=== PATIENT | male | born 1970 | race Caucasian/White ===

== ENCOUNTER 2021-02-21 07:20 | Emergency (ER) | payer MEDICAID ==
[~2021-02-21] VITALS: Ht 182.9 cm; Wt 72.5 kg
[2021-02-21 09:33] VITALS: BP 147/98
[2021-02-21] MEDS ORDERED: tetanus & diphtheria toxoid (Td) vaccine 0.5ml IMVAC ONE (09:50)
[2021-02-21] MEDS ORDERED: amox tr/potassium clavulanate 875/125mg TAB PO ONE (09:50)
[2021-02-21] MEDS ORDERED: AMOX-115 PO (09:52)
[2021-02-21] MEDS ORDERED: NAPR-56 PO (09:52)
[2021-02-21] MEDS ORDERED: TETanus/Pertussis (Acell)/Diphther VAC/PF (Tdap-Adult) 0.5ml syringe IMVAC ONE (10:55)
== END 2021-02-21 11:06 | disposition home or self-care (01) ==
LOC: ER 07:20
DX: S61.232A Puncture wound without foreign body of right middle finger without damage to nail, initial encounter (principal); S60.311A Abrasion of right thumb, initial encounter; W54.0XXA Bitten by dog, initial encounter; Y93.89 Activity, other specified; Y92.89 Other specified places as the place of occurrence of the external cause; Y99.8 Other external cause status
CPT/HCPCS: 90471; 90715; 99283

== ENCOUNTER 2023-08-12 19:17 | Emergency (ER) | payer MEDICAID ==
[~2023-08-12] VITALS: Ht 182.9 cm; Wt 81.8 kg
[~2023-08-12 19:17] MED LIST: NAPR-56 PO
[2023-08-12] MEDS ORDERED: NAPR-56 PO (21:00)
[2023-08-12] MEDS ORDERED: ketorolac trometh inj. 60 MG/2 ML VIAL IM ONE (21:00)
[2023-08-12 21:33] VITALS: BP 136/78; PULSE 82; RESP 18; TEMP 98.1; O2SAT 99
== END 2023-08-12 21:36 | disposition home or self-care (01) ==
LOC: ER 19:18
DX: S42.392A Other fracture of shaft of left humerus, initial encounter for closed fracture (principal); W18.39XA Other fall on same level, initial encounter; Y93.89 Activity, other specified; Y92.89 Other specified places as the place of occurrence of the external cause; Y99.8 Other external cause status
CPT/HCPCS: 29105; 73030; 96372; 99284; J1885; A4565; A6449

== ENCOUNTER 2023-08-27 06:43 | Emergency (ER) | payer MEDICAID ==
[~2023-08-27] VITALS: Ht 182.9 cm; Wt 83.0 kg
[2023-08-27 06:44] VITALS: BP 140/86; PULSE 133; TEMP 98.5; O2SAT 99
[2023-08-27] MEDS ORDERED: TRAM50TA2 PO ×3 (07:22→07:26)
[2023-08-27] MEDS ORDERED: oxyCODONE/APAP 5-325mg tablet PO ONE (07:30)
[2023-08-27] MEDS ORDERED: ibuprofen tablet 400 MG TABLET PO ONE (07:30)
[2023-08-27 07:49] VITALS: RESP 18
== END 2023-08-27 08:07 | disposition home or self-care (01) ==
LOC: ER 06:44
DX: S42.392G Other fracture of shaft of left humerus, subsequent encounter for fracture with delayed healing (principal); X58.XXXD Exposure to other specified factors, subsequent encounter
CPT/HCPCS: 29105; 99284; A4565